=== PATIENT | male | born 1960 | race Caucasian/White ===

== ENCOUNTER 2017-09-14 05:18 | Emergency (ER) | payer SELFPAY ==
[~2017-09-14] VITALS: Ht 182.9 cm; Wt 79.4 kg
--- NOTE | 2017-09-14 05:20 | ER Report ---
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 Patient states she's been on a two-week alcoholic binge. He has a history of distant alcoholism. He states he decompensated over the holidays and has been drinking for 2 weeks. Approximately 15 shots of bourbon per day. Patient's been vomiting for 6 hours. Patient has a history of a Ox[place]-Moody tear. He states he received transfusions. His bleeding was so profuse. I suspect it was secondary to esophageal varices. REVIEW OF SYSTEMS: Respiratory: No cough, no dyspnea. Cardiovascular: No chest pain, no palpitations. Gastrointestinal: As above Musculoskeletal: No back pain. Allergies: Coded Allergies: No Known Drug Allergies (Unverified , 09/14/17) Home Meds Active Scripts Diazepam (VALIUM) 10 Mg Tablet, 1-2 TAB PO 2-3XD Y for alcohol withdrawal symptoms, #15 TAB Prov:KIMBERLY MARIN DO 09/14/17 Promethazine Hcl (PROMETHAZINE HCL) 25 Mg Tablet, 25 MG PO Q4H Y for NAUSEA/ VOMITING, #12 TAB Prov:KIMBERLY MARIN DO 09/14/17 Ondansetron (ZOFRAN ODT) 4 Mg Tab.rapdis, 4 MG PO Q6H Y for NAUSEA/VOMITING, # 10 TAB.LIZY Prov:KIMBERLY MARIN DO 09/14/17 Past Medical/Surgical History Alcoholism, previous upper GI bleed Reviewed Nurses Notes: Yes Old Medical Records Reviewed: Yes Constitutional Vital Sign - Last 24 Hours 09/14/17 09/14/17 09/14/17 09/14/17 05:23 05:27 05:30 05:33 Temp 98.2 Pulse 107 88 Resp 24 B/P (MAP) 161/106 127/94 (105) 145/103 (117) Pulse Ox 91 91 O2 Delivery Room Air 09/14/17 09/14/17 09/14/17 09/14/17 05:48 05:51 06:03 06:08 Pulse ??? 61 68 Resp 18 18 Pulse Ox 86 94 95 O2 Flow Rate 2.0 09/14/17 09/14/17 09/14/17 09/14/17 06:22 06:23 06:28 06:30 Pulse 62 63 Resp 18 16 B/P (MAP) 128/85 (99) 121/82 (95) Pulse Ox 97 95 09/14/17 09/14/17 09/14/17 09/14/17 06:43 06:58 07:00 07:05 Pulse 61 61 96 Resp 16 16 17 B/P (MAP) 102/67 (79) Pulse Ox 95 95 97 09/14/17 09/14/17 07:10 07:15 Pulse 71 86 Resp 16 77 B/P (MAP) 149/98 (115) Pulse Ox 97 97 Intake and Output 09/14/17 09/14/17 09/15/17 15:01 23:01 07:01 Intake Total 1000 ml Balance 1000 ml Physical Exam Vital signs stable, afebrile, pulse ox normal General Appearance: The patient is alert, has no immediate need for airway protection and no current signs of toxicity. Moderate distress, repetitive vomiting, no hemoptysis HEENT: Pupils equal and round no injection. Anicteric sclera, oropharynx with mild erythema Respiratory: Chest is non tender, lungs are clear to auscultation. Cardiac: regular rate and rhythm Gastrointestinal: Abdomen is soft and non tender, no masses, bowel sounds normal. No sputum megaly noted Musculoskeletal: Neck: Neck is supple and non tender. Extremities have full range of motion and are non tender. Skin: No rashes or lesions. DIFFERENTIAL DIAGNOSIS: After history and physical exam differential diagnosis was considered for abdominal pain including but not limited to appendicitis, cholecystitis, gastritis , alcohol poisoning, alcohol withdrawal, food poisoning , gastritis and urinary tract infection. Medical Decision Making Data Points Result Diagram: 09/14/1724 09/14/1724 Laboratory Hematology Test 09/14/17 05:33 09/14/17 06:24 Influenza Type A Antigen Negative (NEGATIVE) Influenza Type B Antigen Negative (NEGATIVE) Red Blood Count 4.61 M/uL (4.00-5.60) Mean Corpuscular Volume 92.3 fL (80.0-96.0) Mean Corpuscular Hemoglobin 30.6 pg (26.0-33.0) Mean Corpuscular Hemoglobin Concent 33.2 g/dL (32.0-36.0) Red Cell Distribution Width 15.8 % (11.5-14.5) Mean Platelet Volume 7.6 fL (7.2-11.1) Neutrophils (%) (Auto) 56.5 % (39.4-72.5) Lymphocytes (%) (Auto) 32.2 % (17.6-49.6) Monocytes (%) (Auto) 9.5 % (4.1-12.4) Eosinophils (%) (Auto) 1.3 % (0.4-6.7) Basophils (%) (Auto) 0.5 % (0.3-1.4) Nucleated RBC Relative Count (auto) 0.0 /100WBC Neutrophils # (Auto) 1.7 K/uL (2.0-7.4) Lymphocytes # (Auto) 0.9 K/uL (1.3-3.6) Monocytes # (Auto) 0.3 K/uL (0.3-1.0) Eosinophils # (Auto) 0.0 K/uL (0.0-0.5) Basophils # (Auto) 0.0 K/uL (0.0-0.1) Nucleated RBC Absolute Count (auto) 0.00 K/uL Sodium Level 143 mmol/L (137-145) Potassium Level 2.9 mmol/L (3.5-5.0) Chloride Level 104 mmol/L (98-107) Carbon Dioxide Level 20 mmol/L (22-30) Blood Urea Nitrogen 8 mg/dl (9-21) Creatinine 0.70 mg/dl (0.66-1.25) Glomerular Filtration Rate Calc > 60.0 Random Glucose 75 mg/dl (75-110) Calcium Level 7.6 mg/dl (8.4-10.2) Total Bilirubin 0.7 mg/dl (0.2-1.3) Aspartate Amino Transf (AST/SGOT) 104 U/L (0-35) Alanine Aminotransferase (ALT/SGPT) 77 U/L (0-56) Alkaline Phosphatase 89 U/L (0-126) Troponin I 0.016 ng/ml Total Protein 6.6 gm/dl (6.3-8.2) Albumin 3.6 g/dl (3.5-5.0) Amylase Level 61 U/L (0-110) Lipase 168 U/L (23-300) Serum Alcohol 226 mg/dl Chemistry Test 09/14/17 05:33 09/14/17 06:24 Influenza Type A Antigen Negative (NEGATIVE) Influenza Type B Antigen Negative (NEGATIVE) White Blood Count 2.9 k/uL (4.5-11.0) Red Blood Count 4.61 M/uL (4.00-5.60) Hemoglobin 14.1 g/dL (14.0-18.0) Hematocrit 42.5 % (42.0-52.0) Mean Corpuscular Volume 92.3 fL (80.0-96.0) Mean Corpuscular Hemoglobin 30.6 pg (26.0-33.0) Mean Corpuscular Hemoglobin Concent 33.2 g/dL (32.0-36.0) Red Cell Distribution Width 15.8 % (11.5-14.5) Platelet Count 85 K/uL (150-450) Mean Platelet Volume 7.6 fL (7.2-11.1) Neutrophils (%) (Auto) 56.5 % (39.4-72.5) Lymphocytes (%) (Auto) 32.2 % (17.6-49.6) Monocytes (%) (Auto) 9.5 % (4.1-12.4) Eosinophils (%) (Auto) 1.3 % (0.4-6.7) Basophils (%) (Auto) 0.5 % (0.3-1.4) Nucleated RBC Relative Count (auto) 0.0 /100WBC Neutrophils # (Auto) 1.7 K/uL (2.0-7.4) Lymphocytes # (Auto) 0.9 K/uL (1.3-3.6) Monocytes # (Auto) 0.3 K/uL (0.3-1.0) Eosinophils # (Auto) 0.0 K/uL (0.0-0.5) Basophils # (Auto) 0.0 K/uL (0.0-0.1) Nucleated RBC Absolute Count (auto) 0.00 K/uL Glomerular Filtration Rate Calc > 60.0 Calcium Level 7.6 mg/dl (8.4-10.2) Total Bilirubin 0.7 mg/dl (0.2-1.3) Aspartate Amino Transf (AST/SGOT) 104 U/L (0-35) Alanine Aminotransferase (ALT/SGPT) 77 U/L (0-56) Alkaline Phosphatase 89 U/L (0-126) Troponin I 0.016 ng/ml Total Protein 6.6 gm/dl (6.3-8.2) Albumin 3.6 g/dl (3.5-5.0) Amylase Level 61 U/L (0-110) Lipase 168 U/L (23-300) Serum Alcohol 226 mg/dl Toxicology Test 09/14/17 06:24 Serum Alcohol 226 mg/dl EKG/Imaging Imaging 12 lead EK 546 Rhythm: normal sinus rhythm [place]: normal QRS: normal ST segments: normal, no evidence of ischemia or dysrhythmia, no old EKGs for comparison ED Course/Re-evaluation Clinical Indication for ER IV: Hydration, IV Access ED Course Patient was admitted to an examination room. H&P was done. The dental diagnoses was considered. Patient admits to heavy alcohol use. He quit almost 36 hours ago. He does have a long history of alcoholism. He is treated with IV fluids, Zofran, Phenergan, Ativan. He feels much better. Diagnostic studies show from a set up ENIAC, leukopenia, mild elevation of LFTs consistent with chronic alcohol use. His potassium is 2.9. He is offered admission to [facility] for medical detox, but declines. He is given potassium 40 mEq by mouth to correct his low potassium. He is discharged home on Phenergan, and Valium. He is advised to abstain from alcohol. Decision to Disposition Date: Sep 14, 2017 Decision to Disposition Time: 06:02 Depart Departure Latest Vital Signs Vital Signs Date Time Temp Pulse Resp B/P (MAP) Pulse Ox O2 Delivery O2 Flow Rate FiO2 09/14/17 07:15 86 77 149/98 (115) 97 09/14/17 05:51 2.0 09/14/17 05:23 98.2 Room Air Impression: Primary Impression: Vomiting Additional Impressions: Alcohol withdrawal Thrombocytopenia Leukopenia Alcoholic hepatitis Condition: Improved Disposition: HOME OR SELF-CARE New Scripts Diazepam (VALIUM) 10 Mg Tablet 1-2 TAB PO 2-3XD Y for alcohol withdrawal symptoms, #15 TAB Prov: KIMBERLY MARIN DO 09/14/17 Promethazine Hcl (PROMETHAZINE HCL) 25 Mg Tablet 25 MG PO Q4H Y for NAUSEA/VOMITING, #12 TAB Prov: KIMBERLY MARIN DO 09/14/17 Ondansetron (ZOFRAN ODT) 4 Mg Tab.rapdis 4 MG PO Q6H Y for NAUSEA/VOMITING, #10 TAB.LIZY Prov: KIMBERLY MARIN DO 09/14/17 Patient Instructions: Alcohol Withdrawal (ED) Additional Instructions: Use medications as provided Follow up with [facility] [phone], address, [facility] [address] for treatment of your alcoholism Problem Qualifiers Primary Impression: Vomiting Vomiting type: unspecified Vomiting Intractability: intractable Nausea presence: with nausea Qualified Codes: R11.2 - Nausea with vomiting, unspecified Additional Impressions: Alcohol withdrawal Complication of substance-induced condition: with unspecified complication Qualified Codes: F10.239 - Alcohol dependence with withdrawal, unspecified Leukopenia Leukopenia type: unspecified Qualified Codes: D72.819 - Decreased white blood cell count, unspecified Alcoholic hepatitis Ascites presence: without ascites Qualified Codes: K70.10 - Alcoholic hepatitis without ascites KIMBERLY MARIN DO Sep 14, 2017 05:20
[2017-09-14] MEDS ORDERED: NS(*) 0.9% 1000 ML BAG 1,000 ML IV ONE (05:27)
[2017-09-14] MEDS ORDERED: ONDANSETRON 4 MG/2 ML VIAL IVP ONE (05:30)
[2017-09-14] MEDS ORDERED: KETOROLAC 30 MG/ML VIAL IVP ONE (05:30)
[2017-09-14] MEDS ORDERED: LORazepam 2 MG/ML VIAL IVP ONE (05:45)
[2017-09-14] MEDS ORDERED: PROMETHAZINE 25 MG/ML 1 ML AMP IVP ONE (05:50)
--- NOTE | 2017-09-14 06:02 | EKG ---
FACILITY: [facility] PATIENT NAME: NORMA CADE : [id number] MR: [id number] V: [id number] EXAM DATE: ORDERING PHYSICIAN: KIMBERLY MARIN TECHNOLOGIST: LINA Cabello Reason : PAIN Blood Pressure : / mmHG Vent. Rate : 073 BPM Atrial Rate : 073 BPM P-R Int : 176 ms QRS Dur : 084 ms QT Int : 396 ms P-R-T Axes : 049 067 058 degrees QTc Int : 436 ms Sinus rhythm Decreased R wave progression anteriorly No acute appearing findings No previous ECGs available Confirmed by BLAIRE GRIFFITHS ([id number]) on 09/14/2017 6:20:11 AM Referred By: MARY Confirmed By:BLAIRE GRIFFITHS
[2017-09-14 06:31] LABS: PLATELET COUNT, AUTOMATED 85 K/uL (150-450)
[2017-09-14] MEDS ORDERED: DIAZ-305 PO (06:39)
[2017-09-14] MEDS ORDERED: ONDA4TAB PO (06:39)
[2017-09-14] MEDS ORDERED: PROM-110 PO (06:39)
[2017-09-14] MEDS ORDERED: POTASSIUM CHL 20 MEQ TABCR PO ONE (06:55)
[2017-09-14 07:15] VITALS: BP 149/98
== END 2017-09-14 07:45 | disposition home or self-care (01) ==
LOC: ER 05:29
DX: F10.239 Alcohol dependence with withdrawal, unspecified (principal); K70.10 Alcoholic hepatitis without ascites; D72.819 Decreased white blood cell count, unspecified; D69.6 Thrombocytopenia, unspecified
CPT/HCPCS: 36415; 80320; 82150; 83690; 84484; 85025; 87502; 93005; 96361; 96374; 96375; 99284; J2060; J2405; J2550; J7030; 82040; 82247; 82310; 82374; 82435; 82565; 82947; 84075; 84132; 84155; 84295; 84450; 84460; 84520

== ENCOUNTER 2017-09-15 05:02 | Emergency (ER) | payer SELFPAY ==
[~2017-09-15] VITALS: Ht 182.9 cm; Wt 77.1 kg
[~2017-09-15 05:02] MED LIST: DIAZ-305 PO; ONDA4TAB PO; PROM-110 PO
--- NOTE | 2017-09-15 05:06 | ER Report ---
History and Physical Time Seen By MD: 05:05 (KIMBERLY HERRERA DO) HPI/ROS CHIEF COMPLAINT: Vomiting, alcohol withdrawal HISTORY OF PRESENT ILLNESS: 57-year-old male presents ambulatory to the ER with vomiting. Patient was seen yesterday morning with alcohol withdrawal and vomiting. Patient was discharged with prescriptions, which he did not fill for Zofran, Phenergan and Valium. Patient admits to having several alcoholic drinks yesterday. REVIEW OF SYSTEMS: Respiratory: No cough, no dyspnea. Cardiovascular: No chest pain, no palpitations. Gastrointestinal: As above Musculoskeletal: No back pain. (KIMBERLY HERRERA DO) Allergies: Coded Allergies: No Known Drug Allergies (Unverified , 09/15/17) Home Meds Active Scripts Diazepam (VALIUM) 10 Mg Tablet, 1-2 TAB PO 2-3XD Y for alcohol withdrawal symptoms, #15 TAB Prov:KIMBERLY HERRERA DO 09/14/17 Promethazine Hcl (PROMETHAZINE HCL) 25 Mg Tablet, 25 MG PO Q4H Y for NAUSEA/ VOMITING, #12 TAB Prov:KIMBERLY HERRERA DO 09/14/17 Ondansetron (ZOFRAN ODT) 4 Mg Tab.rapdis, 4 MG PO Q6H Y for NAUSEA/VOMITING, # 10 TAB.LIZY Prov:KIMBERLY HERRERA DO 09/14/17 Reviewed Nurses Notes: Yes Old Medical Records Reviewed: Yes (KIMBERLY HERRERA DO) Hx Substance Use Disorder: No Hx Alcohol Use: Yes () (KIMBERLY HERRERA DO) Constitutional Vital Sign - Last 24 Hours 09/15/17 09/15/17 09/15/17 09/15/17 05:02 05:07 05:08 05:17 Temp 97.6 Pulse ??? 104 123 Resp 20 21 B/P (MAP) 130/84 130/84 (99) Pulse Ox 90 O2 Delivery Nasal Cannula 09/15/17 09/15/17 09/15/17 09/15/17 05:30 05:32 05:47 06:00 Pulse 84 82 Resp 12 18 B/P (MAP) 139/99 (112) 142/87 (105) Pulse Ox 95 95 09/15/17 09/15/17 09/15/17 09/15/17 06:05 06:20 06:30 06:35 Pulse 82 ??? 80 Resp 19 18 B/P (MAP) 134/81 (98) Pulse Ox 93 92 09/15/17 09/15/17 09/15/17 09/15/17 06:40 06:45 06:50 06:55 Pulse 87 77 76 77 Resp 17 18 16 17 Pulse Ox 92 93 93 93 09/15/17 09/15/17 09/15/17 09/15/17 07:00 07:05 07:20 07:25 Pulse 76 78 97 114 Resp 17 17 19 22 B/P (MAP) 124/77 (93) Pulse Ox 94 93 88 88 09/15/17 09/15/17 09/15/17 09/15/17 07:30 07:35 07:40 07:45 Pulse 90 93 92 88 Resp 18 17 17 16 B/P (MAP) 139/91 (107) Pulse Ox 88 86 86 88 09/15/17 09/15/17 09/15/17 07:50 07:55 08:00 Pulse 79 85 84 Resp 17 18 16 B/P (MAP) 146/84 (104) Pulse Ox 88 91 93 (MARYBETH AMIN MD) Physical Exam General Appearance: The patient is alert, has no immediate need for airway protection and no current signs of toxicity. Vital signs stable, afebrile HEENT Pupils equal and round no injection. Oropharynx with redness, no exudate Respiratory: Chest is non tender, lungs are clear to auscultation. Cardiac: regular rate and rhythm Gastrointestinal: Abdomen is soft and non tender, no masses, bowel sounds normal. Musculoskeletal: Neck: Neck is supple and non tender. Extremities have full range of motion and are non tender. Skin: No rashes or lesions. DIFFERENTIAL DIAGNOSIS: After history and physical exam differential diagnosis was considered for alcohol withdrawal, alcohol poisoning, hepatitis, food poisoning, gastroenteritis, viral syndrome (KIMBERLY HERRERA DO) Medical Decision Making Data Points Result Diagram: 09/15/1751909/15/17 0520 Laboratory Hematology Test 09/15/17 05:20 Red Blood Count 5.04 M/uL (4.00-5.60) Mean Corpuscular Volume 90.9 fL (80.0-96.0) Mean Corpuscular Hemoglobin 30.8 pg (26.0-33.0) Mean Corpuscular Hemoglobin Concent 33.9 g/dL (32.0-36.0) Red Cell Distribution Width 16.2 % (11.5-14.5) Mean Platelet Volume 7.1 fL (7.2-11.1) Neutrophils (%) (Auto) 45.3 % (39.4-72.5) Lymphocytes (%) (Auto) 43.1 % (17.6-49.6) Monocytes (%) (Auto) 9.4 % (4.1-12.4) Eosinophils (%) (Auto) 1.7 % (0.4-6.7) Basophils (%) (Auto) 0.5 % (0.3-1.4) Nucleated RBC Relative Count (auto) 0.1 /100WBC Neutrophils # (Auto) 2.1 K/uL (2.0-7.4) Lymphocytes # (Auto) 2.0 K/uL (1.3-3.6) Monocytes # (Auto) 0.4 K/uL (0.3-1.0) Eosinophils # (Auto) 0.1 K/uL (0.0-0.5) Basophils # (Auto) 0.0 K/uL (0.0-0.1) Nucleated RBC Absolute Count (auto) 0.00 K/uL Sodium Level 143 mmol/L (137-145) Potassium Level 3.4 mmol/L (3.5-5.0) Chloride Level 105 mmol/L (98-107) Carbon Dioxide Level 22 mmol/L (22-30) Blood Urea Nitrogen 9 mg/dl (9-21) Creatinine 0.90 mg/dl (0.66-1.25) Glomerular Filtration Rate Calc > 60.0 Random Glucose 111 mg/dl (75-110) Calcium Level 8.2 mg/dl (8.4-10.2) Total Bilirubin 0.8 mg/dl (0.2-1.3) Aspartate Amino Transf (AST/SGOT) 143 U/L (0-35) Alanine Aminotransferase (ALT/SGPT) 97 U/L (0-56) Alkaline Phosphatase 108 U/L (0-126) Total Protein 7.4 gm/dl (6.3-8.2) Albumin 4.1 g/dl (3.5-5.0) Amylase Level 68 U/L (0-110) Lipase 263 U/L (23-300) Serum Alcohol 220 mg/dl Chemistry Test 09/15/17 05:20 White Blood Count 4.7 k/uL (4.5-11.0) Red Blood Count 5.04 M/uL (4.00-5.60) Hemoglobin 15.6 g/dL (14.0-18.0) Hematocrit 45.8 % (42.0-52.0) Mean Corpuscular Volume 90.9 fL (80.0-96.0) Mean Corpuscular Hemoglobin 30.8 pg (26.0-33.0) Mean Corpuscular Hemoglobin Concent 33.9 g/dL (32.0-36.0) Red Cell Distribution Width 16.2 % (11.5-14.5) Platelet Count 94 K/uL (150-450) Mean Platelet Volume 7.1 fL (7.2-11.1) Neutrophils (%) (Auto) 45.3 % (39.4-72.5) Lymphocytes (%) (Auto) 43.1 % (17.6-49.6) Monocytes (%) (Auto) 9.4 % (4.1-12.4) Eosinophils (%) (Auto) 1.7 % (0.4-6.7) Basophils (%) (Auto) 0.5 % (0.3-1.4) Nucleated RBC Relative Count (auto) 0.1 /100WBC Neutrophils # (Auto) 2.1 K/uL (2.0-7.4) Lymphocytes # (Auto) 2.0 K/uL (1.3-3.6) Monocytes # (Auto) 0.4 K/uL (0.3-1.0) Eosinophils # (Auto) 0.1 K/uL (0.0-0.5) Basophils # (Auto) 0.0 K/uL (0.0-0.1) Nucleated RBC Absolute Count (auto) 0.00 K/uL Glomerular Filtration Rate Calc > 60.0 Calcium Level 8.2 mg/dl (8.4-10.2) Total Bilirubin 0.8 mg/dl (0.2-1.3) Aspartate Amino Transf (AST/SGOT) 143 U/L (0-35) Alanine Aminotransferase (ALT/SGPT) 97 U/L (0-56) Alkaline Phosphatase 108 U/L (0-126) Total Protein 7.4 gm/dl (6.3-8.2) Albumin 4.1 g/dl (3.5-5.0) Amylase Level 68 U/L (0-110) Lipase 263 U/L (23-300) Serum Alcohol 220 mg/dl Toxicology Test 09/15/17 05:20 Serum Alcohol 220 mg/dl (MARYBETH AMIN MD) ED Course/Re-evaluation Clinical Indication for ER IV: Hydration, IV Access Decision to Disposition Date: Sep 15, 2017 Decision to Disposition Time: 05:49 (KIMBERLY HERRERA DO) ED Course I reviewed this patient with Dr. Herrera at sign-out at shift change today. At 0810 the patient was able to ambulate to the bathroom without problems. He is alert and oriented. Oxygen saturations stable. The patient does not want to be admitted. Discharged in stable condition. Has prescriptions from yesterday that he can fill. Decision to Disposition Date: Sep 15, 2017 Decision to Disposition Time: 08:07 (MARYBETH AMIN MD) Depart Departure Latest Vital Signs Vital Signs Date Time Temp Pulse Resp B/P (MAP) Pulse Ox O2 Delivery O2 Flow Rate FiO2 09/15/17 08:00 84 16 146/84 (104) 93 09/15/17 05:07 97.6 Nasal Cannula (MARYBETH AMIN MD) Impression: Primary Impression: Alcohol withdrawal Additional Impression: Alcoholic hepatitis Condition: Improved Disposition: HOME OR SELF-CARE Patient Instructions: Alcohol Withdrawal (ED) Additional Instructions: Kiran prescriptions filled and take them as prescribed Problem Qualifiers Primary Impression: Alcohol withdrawal Complication of substance-induced condition: uncomplicated Qualified Codes: F10.230 - Alcohol dependence with withdrawal, uncomplicated Additional Impression: Alcoholic hepatitis Ascites presence: without ascites Qualified Codes: K70.10 - Alcoholic hepatitis without ascites KIMBERLY HERRERA DO Sep 15, 2017 05:07 MARYBETH AMIN MD Sep 15, 2017 07:01
[2017-09-15] MEDS ORDERED: ONDANSETRON 4 MG/2 ML VIAL IVP ONE (05:15)
[2017-09-15] MEDS ORDERED: LORazepam 2 MG/ML VIAL IVP ONE (05:15)
[2017-09-15] MEDS ORDERED: PROMETHAZINE 25 MG/ML 1 ML AMP IVP ONE (05:25)
[2017-09-15 05:30] LABS: PLATELET COUNT, AUTOMATED 94 K/uL (150-450)
[2017-09-15] MEDS ORDERED: NS(*) 0.9% 1000 ML BAG 1,000 ML IV ONE (05:37)
[2017-09-15 08:00] VITALS: BP 146/84
== END 2017-09-15 08:10 | disposition home or self-care (01) ==
LOC: ER 05:05
DX: F10.239 Alcohol dependence with withdrawal, unspecified (principal); K70.10 Alcoholic hepatitis without ascites
CPT/HCPCS: 80320; 82150; 83690; 85025; 96361; 96374; 96375; 99284; J2060; J2405; J2550; J7030; 82040; 82247; 82310; 82374; 82435; 82565; 82947; 84075; 84132; 84155; 84295; 84450; 84460; 84520

== ENCOUNTER 2017-09-17 01:40 | Emergency (ER) | payer SELFPAY ==
[~2017-09-17] VITALS: Ht 182.9 cm; Wt 77.1 kg
[2017-09-17] MEDS ORDERED: THIAMINE HCL(*) 200 MG/2 ML IN 100 MG, FOLIC ACID(*) 50 MG/10 ML INJ 1 MG, MULTIVITAMIN... IV ONE (01:48)
[2017-09-17] MEDS ORDERED: LORazepam 2 MG/ML VIAL IVP ONE (01:50)
[2017-09-17] MEDS ORDERED: ONDANSETRON 4 MG/2 ML VIAL IVP ONE (01:50)
--- NOTE | 2017-09-17 01:55 | ER Report ---
History and Physical Time Seen By MD: 01:43 Hx. of Stated Complaint: PT RETURNS FOR THIRD TIME INTOXICATED. PT EXPRESSES INTREST IN S FOR DETOX. HPI/ROS CHIEF COMPLAINT: n/v intoxication HISTORY OF PRESENT ILLNESS: Pt has long hx of binge drinking. PT has been on a binge since 08/30/2017 per patient. Pt has been seen in ED for intoxication and symptoms 09/14 and 09/15. Pt was sent home with script for valium and phenergan but did not fill either. Pt states he just continued to drink so did not feel he needed the medication. Tonight pt with vomiting and abd discomfort. Pt states he feels more confused and has some blurred vision. Came here to be checked. Pt had 15 shots of burbon tonight. REVIEW OF SYSTEMS: Constitutional: No fever, no chills. Eyes: No discharge. + intermittent blurred vision ENT: No sore throat. Cardiovascular: No chest pain, no palpitations. Respiratory: No cough, no shortness of breath. Gastrointestinal: + abdominal pain, +nausea, + vomiting. Genitourinary: No hematuria. Musculoskeletal: No back pain. Skin: No rashes. Neurological: No headache. Allergies: Coded Allergies: No Known Drug Allergies (Unverified , 09/17/17) Home Meds Active Scripts Diazepam (VALIUM) 10 Mg Tablet, 1-2 TAB PO 2-3XD Y for alcohol withdrawal symptoms, #15 TAB Prov:KIMBERLY MARIN DO 09/14/17 Promethazine Hcl (PROMETHAZINE HCL) 25 Mg Tablet, 25 MG PO Q4H Y for NAUSEA/ VOMITING, #12 TAB Prov:KIMBERLY MARIN DO 09/14/17 Ondansetron (ZOFRAN ODT) 4 Mg Tab.rapdis, 4 MG PO Q6H Y for NAUSEA/VOMITING, # 10 TAB.LIZY Prov:KIMBERLY MARIN DO 09/14/17 Past Medical/Surgical History Pmhx: alcoholism Pshx: denied Reviewed Nurses Notes: Yes Old Medical Records Reviewed: Yes Hx Substance Use Disorder: No Hx Alcohol Use: Yes (15OZ DAY OF BURBON) Constitutional Vital Sign - Last 24 Hours 09/17/17 09/17/17 09/17/17 09/17/17 01:46 01:47 01:55 02:00 Temp 98.0 Pulse 97 105 Resp 12 17 B/P (MAP) 149/92 149/92 (111) 155/95 (115) Pulse Ox 87 92 O2 Delivery Room Air 09/17/17 09/17/17 09/17/17 09/17/17 02:10 02:15 02:20 02:40 Pulse 93 81 Resp 8 12 B/P (MAP) 153/95 (114) 150/104 (119) 151/94 (113) Pulse Ox 94 95 09/17/17 09/17/17 09/17/17 09/17/17 02:50 03:00 03:05 03:20 Pulse 65 68 71 Resp 15 14 12 B/P (MAP) 148/87 (107) 141/92 (108) Pulse Ox 94 94 95 Physical Exam General Appearance: The patient is alert, has no immediate need for airway protection and no signs of toxicity. Eyes: Pupils equal and round no pallor or injection, EOMI, injected scleria ENT: no pharyngeal erythema or exudates, Mucous membranes are moist Respiratory: There are no retractions, lungs are clear to auscultation. Cardiovascular: Regular rate and rhythm. pulses are equal and symmetrical Gastrointestinal: Abdomen is soft and non tender, no masses, bowel sounds normal, no guarding, no rigidity or rebound Neurological: Cranial nerves II-XII grossly intact, no sensory or motor loss Skin: Warm and dry, no rashes. Musculoskeletal: Neck is supple non tender, no vertebral tenderness Extremities are nontender, non swollen and have full range of motion. DIFFERENTIAL DIAGNOSIS: After history and physical exam differential diagnosis was considered for electrolyte abnl, dehydration, depression, alcoholism Medical Decision Making Data Points Result Diagram: 09/17/17 0200 09/17/17 0200 Laboratory Hematology Test 09/17/17 02:00 09/17/17 02:06 Red Blood Count 4.56 M/uL (4.00-5.60) Mean Corpuscular Volume 90.9 fL (80.0-96.0) Mean Corpuscular Hemoglobin 30.8 pg (26.0-33.0) Mean Corpuscular Hemoglobin Concent 33.9 g/dL (32.0-36.0) Red Cell Distribution Width 16.4 % (11.5-14.5) Mean Platelet Volume 7.1 fL (7.2-11.1) Neutrophils (%) (Auto) 45.6 % (39.4-72.5) Lymphocytes (%) (Auto) 41.7 % (17.6-49.6) Monocytes (%) (Auto) 9.9 % (4.1-12.4) Eosinophils (%) (Auto) 2.3 % (0.4-6.7) Basophils (%) (Auto) 0.5 % (0.3-1.4) Nucleated RBC Relative Count (auto) 0.0 /100WBC Neutrophils # (Auto) 2.0 K/uL (2.0-7.4) Lymphocytes # (Auto) 1.8 K/uL (1.3-3.6) Monocytes # (Auto) 0.4 K/uL (0.3-1.0) Eosinophils # (Auto) 0.1 K/uL (0.0-0.5) Basophils # (Auto) 0.0 K/uL (0.0-0.1) Nucleated RBC Absolute Count (auto) 0.00 K/uL Sodium Level 142 mmol/L (137-145) Potassium Level 3.2 mmol/L (3.5-5.0) Chloride Level 105 mmol/L (98-107) Carbon Dioxide Level 23 mmol/L (22-30) Blood Urea Nitrogen 8 mg/dl (9-21) Creatinine 0.80 mg/dl (0.66-1.25) Glomerular Filtration Rate Calc > 60.0 Random Glucose 113 mg/dl (75-110) Calcium Level 8.2 mg/dl (8.4-10.2) Magnesium Level 1.6 mg/dl (1.7-2.2) Total Bilirubin 0.4 mg/dl (0.2-1.3) Aspartate Amino Transf (AST/SGOT) 111 U/L (0-35) Alanine Aminotransferase (ALT/SGPT) 89 U/L (0-56) Alkaline Phosphatase 90 U/L (0-126) Total Protein 6.7 gm/dl (6.3-8.2) Albumin 3.6 g/dl (3.5-5.0) Salicylates Level < 10 mg/L Salicylate Last Dose Date unknown Acetaminophen Level < 10 ug/ml Serum Alcohol 202 mg/dl Urine Color Yellow Urine Clarity Clear Urine pH 5.0 pH (4.8-9.5) Urine Specific [place] 1.012 Urine Protein Negative mg/dL (NEGATIVE) Urine Glucose (UA) Negative mg/dL (NEGATIVE) Urine Ketones Negative mg/dL (NEGATIVE) Urine Blood Small (NEGATIVE) Urine Nitrite Negative (NEGATIVE) Urine Bilirubin Negative (NEGATIVE) Urine Urobilinogen Negative mg/dL (0.2-1.9) Urine Leukocyte Esterase Negative (NEGATIVE) Urine RBC 1 /HPF (0-2/HPF) Urine WBC 1 /HPF (0-5/HPF) Urine Squamous Epithelial Cells None /LPF (</=FEW) Urine Bacteria Negative /HPF (NONE-FEW) Urine Hyaline Casts Few /LPF (NONE-FEW) Urine Mucus Few /HPF (NONE-FEW) Urine Opiates Screen Negative Urine Barbiturates Screen Negative Ur Tricyclic Antidepressants Screen Negative Urine Phencyclidine Screen Negative Urine Amphetamines Screen Negative Urine Benzodiazepines Screen Positive Urine Cocaine Screen Negative Urine Cannabinoids Screen Negative Chemistry Test 09/17/17 02:00 09/17/17 02:06 White Blood Count 4.4 k/uL (4.5-11.0) Red Blood Count 4.56 M/uL (4.00-5.60) Hemoglobin 14.1 g/dL (14.0-18.0) Hematocrit 41.5 % (42.0-52.0) Mean Corpuscular Volume 90.9 fL (80.0-96.0) Mean Corpuscular Hemoglobin 30.8 pg (26.0-33.0) Mean Corpuscular Hemoglobin Concent 33.9 g/dL (32.0-36.0) Red Cell Distribution Width 16.4 % (11.5-14.5) Platelet Count 80 K/uL (150-450) Mean Platelet Volume 7.1 fL (7.2-11.1) Neutrophils (%) (Auto) 45.6 % (39.4-72.5) Lymphocytes (%) (Auto) 41.7 % (17.6-49.6) Monocytes (%) (Auto) 9.9 % (4.1-12.4) Eosinophils (%) (Auto) 2.3 % (0.4-6.7) Basophils (%) (Auto) 0.5 % (0.3-1.4) Nucleated RBC Relative Count (auto) 0.0 /100WBC Neutrophils # (Auto) 2.0 K/uL (2.0-7.4) Lymphocytes # (Auto) 1.8 K/uL (1.3-3.6) Monocytes # (Auto) 0.4 K/uL (0.3-1.0) Eosinophils # (Auto) 0.1 K/uL (0.0-0.5) Basophils # (Auto) 0.0 K/uL (0.0-0.1) Nucleated RBC Absolute Count (auto) 0.00 K/uL Glomerular Filtration Rate Calc > 60.0 Calcium Level 8.2 mg/dl (8.4-10.2) Magnesium Level 1.6 mg/dl (1.7-2.2) Total Bilirubin 0.4 mg/dl (0.2-1.3) Aspartate Amino Transf (AST/SGOT) 111 U/L (0-35) Alanine Aminotransferase (ALT/SGPT) 89 U/L (0-56) Alkaline Phosphatase 90 U/L (0-126) Total Protein 6.7 gm/dl (6.3-8.2) Albumin 3.6 g/dl (3.5-5.0) Salicylates Level < 10 mg/L Salicylate Last Dose Date unknown Acetaminophen Level < 10 ug/ml Serum Alcohol 202 mg/dl Urine Color Yellow Urine Clarity Clear Urine pH 5.0 pH (4.8-9.5) Urine Specific [place] 1.012 Urine Protein Negative mg/dL (NEGATIVE) Urine Glucose (UA) Negative mg/dL (NEGATIVE) Urine Ketones Negative mg/dL (NEGATIVE) Urine Blood Small (NEGATIVE) Urine Nitrite Negative (NEGATIVE) Urine Bilirubin Negative (NEGATIVE) Urine Urobilinogen Negative mg/dL (0.2-1.9) Urine Leukocyte Esterase Negative (NEGATIVE) Urine RBC 1 /HPF (0-2/HPF) Urine WBC 1 /HPF (0-5/HPF) Urine Squamous Epithelial Cells None /LPF (</=FEW) Urine Bacteria Negative /HPF (NONE-FEW) Urine Hyaline Casts Few /LPF (NONE-FEW) Urine Mucus Few /HPF (NONE-FEW) Urine Opiates Screen Negative Urine Barbiturates Screen Negative Ur Tricyclic Antidepressants Screen Negative Urine Phencyclidine Screen Negative Urine Amphetamines Screen Negative Urine Benzodiazepines Screen Positive Urine Cocaine Screen Negative Urine Cannabinoids Screen Negative Toxicology Test 09/17/17 02:00 09/17/17 02:06 Salicylates Level < 10 mg/L Salicylate Last Dose Date unknown Acetaminophen Level < 10 ug/ml Serum Alcohol 202 mg/dl Urine Opiates Screen Negative Urine Barbiturates Screen Negative Ur Tricyclic Antidepressants Screen Negative Urine Phencyclidine Screen Negative Urine Amphetamines Screen Negative Urine Benzodiazepines Screen Positive Urine Cocaine Screen Negative Urine Cannabinoids Screen Negative Urinalysis Test 09/17/17 02:06 Urine Color Yellow Urine Clarity Clear Urine pH 5.0 pH (4.8-9.5) Urine Specific [place] 1.012 Urine Protein Negative mg/dL (NEGATIVE) Urine Glucose (UA) Negative mg/dL (NEGATIVE) Urine Ketones Negative mg/dL (NEGATIVE) Urine Blood Small (NEGATIVE) Urine Nitrite Negative (NEGATIVE) Urine Bilirubin Negative (NEGATIVE) Urine Urobilinogen Negative mg/dL (0.2-1.9) Urine Leukocyte Esterase Negative (NEGATIVE) Urine RBC 1 /HPF (0-2/HPF) Urine WBC 1 /HPF (0-5/HPF) Urine Squamous Epithelial Cells None /LPF (</=FEW) Urine Bacteria Negative /HPF (NONE-FEW) Urine Hyaline Casts Few /LPF (NONE-FEW) Urine Mucus Few /HPF (NONE-FEW) ED Course/Re-evaluation Clinical Indication for ER IV: Hydration, IV Access ED Course 09/17/2017 2:26:44 am PTs magnesium and potassium are low. Pt is currently getting magnesium in his banana bag. Will give a dose of potassium. 09/17/2017 3:24:58 am PT is awake from his nap. Pt states he feels much better. Banana bag still with 200ml to complete. No beds available in currently. Offered to check to see bed availability in [place] however pt no longer looking for detox/rehab. Pt states that he is always depressed on holidays and he states that he is now going to start this year by looking for a new job "i dont drink when I am focused at work". Will wait for fluids to complete. Decision to Disposition Date: Sep 17, 2017 Decision to Disposition Time: 04:10 Depart Departure Latest Vital Signs Vital Signs Date Time Temp Pulse Resp B/P (MAP) Pulse Ox O2 Delivery O2 Flow Rate FiO2 09/17/17 03:20 71 12 141/92 (108) 95 09/17/17 01:46 98.0 Room Air Impression: Primary Impression: ALCOHOL DEPENDENCE WITH INTOXICATION, UNSPECIFIED Additional Impressions: HYPOMAGNESEMIA HYPOKALEMIA Referrals: Alcoholics Anonymous [facility] Patient Instructions: Abuse of Alcohol (GEN) Additional Instructions: Recommend you stop drinking. Scripts for phenergan and valium were prescribed for you on your prior visits. Recommend obtaining the medications to help with any nausea, anxiety or withdrawl symptoms you may feel. [place] does have support groups such as AA which can be helpful. Return as needed. Problem Qualifiers ARLYN PAZ DO Sep 17, 2017 01:55
[2017-09-17 02:10] LABS: PLATELET COUNT, AUTOMATED 80 K/uL (150-450)
[2017-09-17] MEDS ORDERED: POTASSIUM CHL 20 MEQ TABCR PO ONE (02:30)
[2017-09-17 04:13] VITALS: BP 156/103
== END 2017-09-17 04:18 | disposition home or self-care (01) ==
LOC: ER 01:43
DX: F10.229 Alcohol dependence with intoxication, unspecified (principal); E83.42 Hypomagnesemia; E87.6 Hypokalemia; R11.2 Nausea with vomiting, unspecified; R10.9 Unspecified abdominal pain
CPT/HCPCS: 80305; 80320; 80329; 81001; 83735; 84443; 85025; 96365; 96366; 96375; 99283; J2060; J2405; J3411; J3475; J7030; 82040; 82247; 82310; 82374; 82435; 82565; 82947; 84075; 84132; 84155; 84295; 84450; 84460; 84520

== ENCOUNTER 2017-09-19 23:36 | Inpatient (IN) | payer SELFPAY ==
[~2017-09-19] VITALS: Ht 182.9 cm; Wt 75.5 kg
--- NOTE | 2017-09-19 23:47 | ER Report ---
History and Physical Time Seen By MD: 23:43 HPI/ROS CHIEF COMPLAINT: Vomiting blood HISTORY OF PRESENT ILLNESS: 57-year-old male alcoholic who presents ambulatory to the ER complaining of vomiting dark blood and proximal 10 ounces at home earlier. Patient has a history of a previous upper GI bleed with transfusions in the distant past. Patient states he does not want endoscopy. Patient denies black stools. Patient states she's been on a two-week alcoholic binge since . He's been drinking approximately 15 ounces per day. She's been seen in the ER twice and offered admission [facility]. He's declined them both occasions. Patient states his last alcohol was 10 hours ago. REVIEW OF SYSTEMS: Respiratory: No cough, no dyspnea. Cardiovascular: No chest pain, no palpitations. Gastrointestinal: As above Musculoskeletal: No back pain. Allergies: Coded Allergies: No Known Drug Allergies (Unverified , 09/19/17) Home Meds Discontinued Scripts Diazepam (VALIUM) 10 Mg Tablet, 1-2 TAB PO 2-3XD Y for alcohol withdrawal symptoms, #15 TAB Prov:KIMBERLY MARIN DO 09/14/17 Promethazine Hcl (PROMETHAZINE HCL) 25 Mg Tablet, 25 MG PO Q4H Y for NAUSEA/ VOMITING, #12 TAB Prov:KIMBERLY MARIN DO 09/14/17 Ondansetron (ZOFRAN ODT) 4 Mg Tab.rapdis, 4 MG PO Q6H Y for NAUSEA/VOMITING, # 10 TAB.LIZY Prov:KIMBERLY MARIN DO 09/14/17 Reviewed Nurses Notes: Yes Old Medical Records Reviewed: Yes Hx Substance Use Disorder: No Hx Alcohol Use: Yes () Constitutional Vital Sign - Last 24 Hours 09/19/17 09/19/17 09/19/17 09/19/17 23:39 23:41 23:41 23:42 Temp 97.0 Pulse 94 105 Resp 20 B/P (MAP) 147/106 (120) 147/106 109/89 (96) Pulse Ox 90 86 O2 Delivery Room Air 09/19/17 09/19/17 09/19/17 09/19/17 23:45 23:46 23:51 23:56 Pulse 85 86 83 Resp 10 8 6 B/P (MAP) 125/88 (100) Pulse Ox 94 95 94 09/20/17 09/20/17 09/20/17 09/20/17 00:00 00:01 00:06 00:11 Pulse 84 89 70 Resp 9 10 6 B/P (MAP) 133/89 (104) Pulse Ox 94 93 96 09/20/17 09/20/17 09/20/17 09/20/17 00:15 00:16 00:21 00:26 Pulse 75 107 76 Resp 6 11 6 B/P (MAP) 110/75 (87) Pulse Ox 96 98 96 09/20/17 09/20/17 09/20/17 09/20/17 00:30 00:31 00:36 00:45 Pulse 91 68 Resp 12 9 B/P (MAP) 123/85 (98) 131/86 (101) Pulse Ox 94 97 09/20/17 09/20/17 09/20/17 09/20/17 00:46 00:51 00:56 01:00 Pulse 75 73 119 Resp 15 8 B/P (MAP) 134/84 (101) Pulse Ox 95 95 09/20/17 09/20/17 09/20/17 09/20/17 01:01 01:06 01:15 01:16 Pulse ??? 95 99 Resp 6 7 B/P (MAP) 125/94 (104) Pulse Ox 95 98 94 09/20/17 09/20/17 09/20/17 09/20/17 01:21 01:26 01:30 01:31 Pulse 101 110 ??? Resp 10 19 B/P (MAP) 123/85 (98) Pulse Ox 96 Physical Exam General Appearance: The patient is alert, has no immediate need for airway protection and no current signs of toxicity. Patient has emesis bag with approximately 6 ounces of coffee-ground emesis in, skin warm, dry, pink HEENT: Pupils equal and round no injection. Respiratory: Chest is non tender, lungs are clear to auscultation. Cardiac: regular rate and rhythm Gastrointestinal: Abdomen is soft and non tender, no masses, bowel sounds normal. Musculoskeletal: Neck: Neck is supple and non tender. Extremities have full range of motion and are non tender. Skin: No rashes or lesions. DIFFERENTIAL DIAGNOSIS: After history and physical exam differential diagnosis was considered for upper GI bleeding including but not limited to ulcer disease , gastritis, Oxana-Moody tear, and esophageal varices. Medical Decision Making Data Points Result Diagram: 09/20/17 0517 09/20/17 0517 Laboratory Hematology Test 09/19/17 00:18 09/20/17 00:00 Prothrombin Time 13.5 seconds (12.0-14.4) Prothromb Time International Ratio 1.03 Activated Partial Thromboplast Time 26 seconds (23-35) Amylase Level 35 U/L (0-110) Lipase 235 U/L (23-300) Serum Alcohol 329 mg/dl Gastric Fluid pH 2 pH Gastric Fluid Occult Blood Positive (NEGATIVE) Chemistry Test 09/19/17 00:18 09/20/17 00:00 Prothrombin Time 13.5 seconds (12.0-14.4) Prothromb Time International Ratio 1.03 Activated Partial Thromboplast Time 26 seconds (23-35) Amylase Level 35 U/L (0-110) Lipase 235 U/L (23-300) Serum Alcohol 329 mg/dl Gastric Fluid pH 2 pH Gastric Fluid Occult Blood Positive (NEGATIVE) Coagulation Test 09/19/17 00:18 Prothrombin Time 13.5 seconds Prothromb Time International Ratio 1.03 Activated Partial Thromboplast Time 26 seconds Toxicology Test 09/19/17 00:18 Serum Alcohol 329 mg/dl EKG/Imaging EKG Interpretation 12 lead EK Rhythm: Atrial fibrillation rate 104 [place]: normal QRS: normal ST segments: normal, no evidence of ischemia, diffuse T-wave flattening, comparison to previous EKG dated 09/14/17, no significant change ED Course/Re-evaluation Clinical Indication for ER IV: Hydration, IV Access ED Course Patient was admitted to an examination room. H&P was done. The differential diagnoses was considered. On clinical examination. Patient admits he's been vomiting dark blood. He's noted some clots. Patient likely has a history of varices from his chronic alcoholism. Patient's been on a binge for the last 2 weeks. Approximately 15 ounces of bourbon per day. Patient's been seen in the ER on 3 other occasions. Tonight, his H&H is down slightly. His vital signs are stable. He continues to retch here in the emergency department. He goes into atrial fibrillation. His coags are normal. He has a history of mild thrombocytopenia. Patient's blood alcohol returns at 329. His case is discussed with Dr. Wray as noted below. The patient be admitted to ICU to be closely monitored. 09/20/2017 12:59:28 am case discussed with Dr. Bala Rutledge hospitalist on- call, who will come evaluate the patient and consider admission. Decision to Disposition Date: Sep 20, 2017 Decision to Disposition Time: 00:59 Depart Departure Latest Vital Signs Vital Signs Date Time Temp Pulse Resp B/P (MAP) Pulse Ox O2 Delivery O2 Flow Rate FiO2 09/20/17 01:31 ??? 19 09/20/17 01:30 123/85 (98) 09/20/17 01:21 96 09/19/17 23:41 97.0 Room Air Impression: Primary Impression: Upper GI bleed Additional Impressions: Thrombocytopenia Leukopenia New onset a-fib Condition: Improved Disposition: Admitted from ER Problem Qualifiers Additional Impressions: Leukopenia Leukopenia type: unspecified Qualified Codes: D72.819 - Decreased white blood cell count, unspecified KIMBERLY MARIN DO Sep 19, 2017 23:47
[2017-09-19] MEDS ORDERED: NS(*) 0.9% 1000 ML BAG 1,000 ML IV ONE (23:51)
[2017-09-19] MEDS ORDERED: PANTOPRAZOLE SOD 40 MG IV VIAL IVP ONE (23:55)
[2017-09-19] MEDS ORDERED: ONDANSETRON 4 MG/2 ML VIAL IVP ONE (23:55)
[2017-09-20] VITALS (39 sets, daily range): BP systolic 84–168; BP diastolic 53–106; Ht 182.9 cm; Wt 75.5 kg
[2017-09-20 00:33] LABS: PLATELET COUNT, AUTOMATED 96 K/uL (150-450)
[2017-09-20 00:45] LABS: INR 1.03
[2017-09-20] MEDS ORDERED: PROMETHAZINE 25 MG/ML 1 ML AMP IVP ONE (01:00)
[2017-09-20] MEDS ORDERED: ONDANSETRON 4 MG/2 ML VIAL IVP PRN (01:40)
[2017-09-20] MEDS ORDERED: LORazepam 1 MG TAB PO PRN (01:40)
[2017-09-20] MEDS ORDERED: PANTOPRAZOLE SOD 40 MG IV VIAL IVP ONE (01:40)
[2017-09-20] MEDS: PANTOPRAZOLE SOD(*)40 MG VIAL 80 MG in NS(*) 0.9% 100 ML BAG 100 ML IV SCH ×3 (01:40→21:40)
[2017-09-20] MEDS ORDERED: DILTIAZEM HCL* 100 MG ADDVIAL 100 MG in NS(*) 0.9% 100 ML ADDVANT BAG 100 ML IV SCH (01:40)
[2017-09-20] MEDS ORDERED: THIAMINE HCL(*) 200 MG/2 ML IN 100 MG, FOLIC ACID(*) 50 MG/10 ML INJ 1 MG, MULTIVITAMIN... IV ONE (01:40)
[2017-09-20] MEDS ORDERED: INFLUENZA VIRUS VAC 0.5 ML SYR IM ONLY ONE (01:40)
[2017-09-20] MEDS ORDERED: MAGNESIUM SUL* 2 GM/50 ML IVPB 50 ML IVPB ONE (02:00)
--- NOTE | 2017-09-20 02:14 | History & Physical ---
History of Present Illness History of Present Illness 57yo male with a h/o alcohol abuse who came to the ER for coffee ground emesis. He has been on an alcohol binge for almost 3 weeks. He has been to the ER for vomiting and intoxication 3 days ago, 5 days ago and 6 days ago. He reports drinking about 16 ounces of whiskey a day during the binge. His last drink was about 9pm. He reports having a Oxana-Moody tear a year ago that required hospitalization in [place], [place]. He refused to have an EGD done and the bleeding stopped. He has never had an EGD. He denies any hospitalizations for alcohol withdrawal. He denies any NSAID use and doesn't take any prescription medications. He denies chest pain, sob, melena, blood in stools. He has self diagnosed atrial fibrillation because he has noticed palpitations. In the ER, he was given a Protonix IV, Zofran, and NS. He had an episode of coffee ground emesis in the ER. He went into atrial fibrillation in the ER. History Problems: (1) History of upper gastrointestinal bleeding (2) Alcohol abuse Home Meds Discontinued Scripts Diazepam (VALIUM) 10 Mg Tablet, 1-2 TAB PO 2-3XD Y for alcohol withdrawal symptoms, #15 TAB Prov:KIMBERLY MARIN DO 09/14/17 Promethazine Hcl (PROMETHAZINE HCL) 25 Mg Tablet, 25 MG PO Q4H Y for NAUSEA/ VOMITING, #12 TAB Prov:KIMBERLY MARIN DO 09/14/17 Ondansetron (ZOFRAN ODT) 4 Mg Tab.rapdis, 4 MG PO Q6H Y for NAUSEA/VOMITING, # 10 TAB.LIZY Prov:KIMBERLY MARIN DO 09/14/17 Allergies: Coded Allergies: No Known Drug Allergies (Unverified , 09/19/17) Other Social/Family Hx He is a auto body repair technician. He doesn't smoke. Hx Alcohol Use: Yes (16 oz of [place] a day. ) Review of Systems All Systems Reviewed/Normal: Yes, Except as Noted Exam Vital Signs Vital Signs Date Time Temp Pulse Resp B/P (MAP) Pulse Ox O2 Delivery O2 Flow Rate FiO2 09/19/17 23:41 97.0 105 20 147/106 86 Room Air General Appearance: Awake, No Acute Distress Neuro: Other (Appears intoxicated. Slurring words. No focal deficits. Answers questions appropriately.) ENT: Moist Mucous Membranes (Dark liquid on tongue) Cardiovascular: Other (Tachy, irregular) Respiratory: Clear to Auscultation GI: Abd Soft and Non-Tender (No stigmata of liver disease) Extremities: No Edema Integumentary: No Jaundice, No Cyanosis Medical Decision Making Data Points Result Diagram: 09/19/171709/19/1717 Item Value Date Time Magnesium Level 1.6 mg/dl L 09/17/17199 Total Bilirubin 0.5 mg/dl 09/19/1717 Aspartate Amino Transf (AST/SGOT) 139 U/L H 09/19/1717 Alanine Aminotransferase (ALT/SGPT) 96 U/L H 09/19/1717 Alkaline Phosphatase 79 U/L 09/19/1717 Thyroid Stimulating Hormone (TSH) 2.29 uIU/ml 09/17/17199 Neutrophils (%) (Auto) 57.2 % 09/19/1717 Lymphocytes (%) (Auto) 30.6 % 09/19/1717 EKG / Imaging EKG Interpretation Atrial fibrillation with RVR. No obvious ST depression. I didn't have access to a previous ECG, but trying to get one. Assessment and Plan Problems: (1) Upper GI bleed Status: Acute Assessment & Plan: He presented after an episode of coffee ground emesis and then had another in the ER. It is likely secondary to vomiting, because he has been binge drinking and has been to the ER 3 times in the last week for vomiting. Initially, his bp/p/Hg were stable. However, then he went into atrial fibrillation, so his heart rate increased, but bp remained stable. He denies any abdominal pain and has a benign exam. He has been typed and crossed for 2 units. INR is wnl and plt count is mildly low at 96k. He will admitted to the ICU. Protonix will be loaded and then a drip started. He is to be NPO. General Surgery hasn't been consulted, but is aware that the patient has been admitted. The patient doesn't want an EGD unless it is an absolute emergency. Repeat Hg in a couple of hours. (2) New onset a-fib Status: Acute Assessment & Plan: BP stable. No evidence of ischemia on ECG. Will start a diltiazem drip and titrate to rate. Will order an echo. TSH wnl on previous ER visit. (3) Alcohol withdrawal Status: Acute Assessment & Plan: He denies a h/o of DT's or seizures. Will implement seizure precautions, follow with [facility] and use Ativan IV to cover. (4) Thrombocytopenia Status: Chronic Assessment & Plan: Secondary to alcohol abuse. (5) Alcoholic hepatitis Status: Acute Assessment & Plan: Will follow CMP. Venous Thromboembolism Antithrombotics Is Pt On Any Antithrombotics?: No Prophylaxis Tx Contraindicated Pharmacological Contraindicati: Active Bleeding Exam Sepsis Risk: No Definite Risk Problem Qualifiers (1) Alcoholic hepatitis: Ascites presence: without ascites Qualified Codes: K70.10 - Alcoholic hepatitis without ascites DOMINGO OSBORNE MD Sep 20, 2017 02:14
[2017-09-20] MEDS ORDERED: THIAMINE HCL 200 MG/2 ML INJ ONE ×2 (02:43→20:15)
[2017-09-20] MEDS ORDERED: MULTIVITAMINS 10 ML VIAL IV ONE ×2 (02:45→20:16)
--- NOTE | 2017-09-20 02:52 | EKG ---
FACILITY: [facility] PATIENT NAME: NORMA CADE : [id number] MR: [id number] V: [id number] EXAM DATE: ORDERING PHYSICIAN: KIMBERLY MARIN TECHNOLOGIST: JC Test Reason : A FIB Blood Pressure : / mmHG Vent. Rate : 104 BPM Atrial Rate : 045 BPM P-R Int : 000 ms QRS Dur : 082 ms QT Int : 360 ms P-R-T Axes : 000 062 041 degrees QTc Int : 473 ms Atrial fibrillation with rapid ventricular response Abnormal ECG When compared with ECG of 14-SEP-2017 05:44, Now in atrial fibrillation Now with diffuse T flattening Confirmed by DOMINGO OSBORNE ([id number]) on 09/20/2017 5:38:01 AM Referred By: Confirmed By:DOMINGO OSBORNE
[2017-09-20] MEDS: NS(*) 0.9% 1000 ML BAG 1,000 ML IV PRN ×2 (03:07→11:39)
[2017-09-20 05:33] LABS: PLATELET COUNT, AUTOMATED 87 K/uL (150-450)
[2017-09-20] MEDS ORDERED: KCL (*) 20 MEQ/100 ML PREMIX 100 ML IV ONE (07:55)
[2017-09-20] MEDS: LORazepam 2 MG/ML VIAL IVP PRN ×2 (08:18→18:19)
[2017-09-20] MEDS: PROMETHAZINE 25 MG/ML 1 ML AMP IVP PRN ×2 (08:19→14:10)
[2017-09-20] MEDS ORDERED: LORazepam 2 MG/ML VIAL IVP ONE (08:20)
[2017-09-20] MEDS ORDERED: MULTIVITAMINS IV ONE (20:10)
[2017-09-20] MEDS ORDERED: ACETAMINOPHEN 325 MG TAB PO PRN (20:10)
[2017-09-20] MEDS ORDERED: THIAMINE HCL IV ONE (20:10)
[2017-09-20] MEDS ORDERED: [UNRECOGNIZED DRUG - OTHER] IV ONE (20:10)
[2017-09-20] MEDS ORDERED: MAGNESIUM SUL 50% 1GM/2ML VIAL ONE (20:15)
[2017-09-21] VITALS (10 sets, daily range): BP systolic 127–165; BP diastolic 84–113
[2017-09-21] MEDS: NS(*) 0.9% 1000 ML BAG 1,000 ML IV PRN (05:25)
[2017-09-21 05:29] LABS: PLATELET COUNT, AUTOMATED 89 K/uL (150-450)
[2017-09-21] MEDS: LORazepam 2 MG/ML VIAL IVP PRN (05:38)
[2017-09-21] MEDS ORDERED: PANTOPRAZOLE SOD 40 MG TABEC PO SCH (09:00)
--- NOTE | 2017-09-21 12:54 | Hospitalist Depart ---
Discharge Summary Reason for Hosp/Final Diag: (1) Upper GI bleed Status: Acute Hospital Course & Plan: He presented after an episode of coffee ground emesis and then had another episode in the emergency room. His Hgb has been stable since admission. He reports that he has been on an alcohol binge for the last 2 weeks and that he does usually get bloody emesis from excessive vomiting. He has refused upper endoscopy. We did place him on prophylactic treatment with Protonix. His vomiting has resolved. (2) New onset a-fib Status: Acute Hospital Course & Plan: He did have atrial fibrillation on admission and was placed on a diltiazem infusion. He has converted to sinus rhythm and the diltiazem has been discontinued. (3) Alcohol withdrawal Status: Acute Hospital Course & Plan: He was placed on CIWA protocol, but did not exhibit any withdrawal symptoms. We offered placement on [facility] for counseling, but he refused. (4) Thrombocytopenia Status: Chronic Hospital Course & Plan: Secondary to alcohol abuse. (5) Alcoholic hepatitis Status: Acute Hospital Course & Plan: His liver enzymes were elevated, but he has no symptoms of hepatic failure. Departure Latest Vital Signs Vital Signs 09/21/17 09/21/17 07:00 09:00 Pulse 105 Resp 17 B/P (MAP) 138/99 (112) Pulse Ox 93 O2 Delivery Room Air O2 Flow Rate 1.0 Weight (Pounds): 166 Weight (Ounces): 8.0 Result Diagram: 09/21/17 0508 09/21/17 0508 Condition: Improved Discharge: Home, Self Care Discharge Instructions Home Meds Discontinued Scripts Diazepam (VALIUM) 10 Mg Tablet, 1-2 TAB PO 2-3XD Y for alcohol withdrawal symptoms, #15 TAB Prov:KIMBERLY MARIN DO 09/14/17 Promethazine Hcl (PROMETHAZINE HCL) 25 Mg Tablet, 25 MG PO Q4H Y for NAUSEA/ VOMITING, #12 TAB Prov:KIMBERLY MARIN DO 09/14/17 Ondansetron (ZOFRAN ODT) 4 Mg Tab.rapdis, 4 MG PO Q6H Y for NAUSEA/VOMITING, # 10 TAB.LIZY Prov:KIMBERLY MARIN DO 09/14/17 Diet: Regular Activity: As Tolerated Venous Thromboembolism Antithrombotics Is Pt On Any Antithrombotics?: No Problem Qualifiers (1) Alcoholic hepatitis: Ascites presence: without ascites Qualified Codes: K70.10 - Alcoholic hepatitis without ascites MAGY RENE DO Sep 21, 2017 12:54
== END 2017-09-21 13:30 | disposition home or self-care (01) | DRG 378 ==
LOC: ER 23:38 → ICU 09-20 02:22
PROVIDERS: ADMIT Internal Medicine; ATTEND Internal Medicine
DX: K92.2 Gastrointestinal hemorrhage, unspecified (principal); F10.230 Alcohol dependence with withdrawal, uncomplicated; I48.91 Unspecified atrial fibrillation; D69.59 Other secondary thrombocytopenia; K70.10 Alcoholic hepatitis without ascites; D72.819 Decreased white blood cell count, unspecified; Y90.8 Blood alcohol level of 240 mg/100 ml or more
CPT/HCPCS: 36415; 80320; 82040; 82150; 82247; 82271; 82310; 82374; 82435; 82565; 82947; 83690; 83735; 83986; 84075; 84132; 84155; 84295; 84450; 84460; 84520; 85025; 85610; 85730; 86677; 86850; 86900; 86901; 86920; 93005; 96361; 96374; 96375; 97161; 97165; 99285; C9113; J2060; J2405; J2550; J3411; J3475; J3480; J3490; J7030; J7050

== ENCOUNTER 2017-10-08 06:36 | Emergency (ER) | payer SELFPAY ==
[2017-09-20 10:22] VITALS: Ht 182.9 cm; Wt 77.1 kg
[~2017-10-08] VITALS: Ht 182.9 cm; Wt 77.1 kg
[2017-10-08] MEDS ORDERED: NS(*) 0.9% 1000 ML BAG 1,000 ML IV ONE (06:51)
[2017-10-08] MEDS ORDERED: ASPIRIN 81 MG CHEW CHEW ONE (06:52)
--- NOTE | 2017-10-08 06:57 | EKG ---
FACILITY: [facility] - [place] PATIENT NAME: ONRMA CADE : [id number] MR: [id number] V: [id number] EXAM DATE: ORDERING PHYSICIAN: KATELYN VELAZQUEZ TECHNOLOGIST: LINA Cabello Reason : chest pain Blood Pressure : / mmHG Vent. Rate : 105 BPM Atrial Rate : 105 BPM P-R Int : 156 ms QRS Dur : 084 ms QT Int : 330 ms P-R-T Axes : 067 075 059 degrees QTc Int : 436 ms Sinus tachycardia Otherwise normal ECG No previous ECGs available Confirmed by MAGY RENE ([id number]) on 10/10/2017 7:42:45 AM Referred By: Confirmed By:MAGY RENE
[2017-10-08] MEDS ORDERED: THIAMINE HCL(*) 200 MG/2 ML IN 100 MG, FOLIC ACID(*) 50 MG/10 ML INJ 1 MG, MULTIVITAMIN... IV ONE (07:06)
[2017-10-08 07:10] LABS: PLATELET COUNT, AUTOMATED 343 K/uL (150-450)
--- NOTE | 2017-10-08 07:10 | ER Report ---
History and Physical Time Seen By MD: 07:07 Hx. of Stated Complaint: PT REPORTS HEART PALPITATIONS AND CHEST PAIN. HAS BEEN DRINKING TO EXCESS AGAIN TONIGHT PER HIM. HPI/ROS CHIEF COMPLAINT: ETOH abuse; chest pain HISTORY OF PRESENT ILLNESS: Patient is a 57-year-old male who presents for his 4th ED visit in approximately 30 days for alcohol abuse as well as complaint of chest pain and palpitations and "feeling like he is going to ". Patient has had multiple visits in September for alcohol abuse and hematemesis he is been admitted in the past but has refused endoscopy and refused detoxification. Patient states he feels like his chest is pounding and is having palpitations. He denies any shortness of breath. He reports nausea without vomiting he denies abdominal pain. Last drink was just prior to arrival to the emergency department. REVIEW OF SYSTEMS: Constitutional: No fever, no chills. Eyes: No discharge. ENT: No sore throat. Cardiovascular: Chest pain, palpitations Respiratory: No cough, no shortness of breath. Gastrointestinal: Nausea without vomiting or diarrhea no vomiting blood Genitourinary: No hematuria. Musculoskeletal: No back pain. Skin: No rashes. Neurological: No headache. Allergies: Coded Allergies: No Known Drug Allergies (Unverified , 10/08/17) Home Meds No Active Prescriptions or Reported Meds Past Medical/Surgical History Past medical history for alcohol abuse, history of hematemesis, refusing an endoscopy Hx Substance Use Disorder: No Hx Alcohol Use: Yes (16 oz of [place] a day. ) Constitutional Vital Sign - Last 24 Hours 10/08/17 10/08/17 10/08/17 10/08/17 06:41 06:42 06:46 06:51 Temp 97.8 Pulse 112 110 105 Resp 14 10 10 B/P (MAP) 154/94 (114) 154/94 Pulse Ox 92 90 89 O2 Delivery Room Air 10/08/17 10/08/17 10/08/17 10/08/17 06:56 07:00 07:01 07:06 Pulse 101 97 102 Resp 11 6 23 B/P (MAP) 148/104 (119) Pulse Ox 90 91 88 10/08/17 10/08/17 10/08/17 10/08/17 07:11 07:16 07:21 07:26 Pulse 102 117 104 96 Resp 18 10 15 15 Pulse Ox 91 91 90 91 10/08/17 10/08/17 10/08/17 10/08/17 07:30 07:31 07:36 07:46 Pulse 98 126 100 Resp 15 9 9 B/P (MAP) 149/101 (117) Pulse Ox 88 91 85 10/08/17 10/08/17 10/08/17 10/08/17 07:50 07:51 07:56 08:00 Pulse 94 89 Resp 10 7 B/P (MAP) 148/91 (110) Pulse Ox 91 95 O2 Flow Rate 1.0 10/08/17 10/08/17 08:01 08:11 Pulse 92 86 Resp 26 11 Pulse Ox 95 95 Intake and Output 10/08/17 10/08/17 10/09/17 15:01 23:01 07:01 Intake Total 1000 ml Balance 1000 ml Physical Exam General Appearance: The patient is alert, has no immediate need for airway protection and no signs of toxicity. Appears intoxicated Eyes: Pupils equal and round no pallor or injection. Mild conjunctival injection ENT, Mouth: Mucous membranes are moist. Respiratory: There are no retractions, lungs are clear to auscultation. Cardiovascular: Regular rate and rhythm. Gastrointestinal: Abdomen is soft and non tender, no masses, bowel sounds normal. Neurological: Intoxicated but oriented 3 Skin: Warm and dry, no rashes. Musculoskeletal: Neck is supple non tender. Extremities are nontender, nonswollen and have full range of motion. Medical Decision Making Data Points Result Diagram: 10/08/1762510/08/17 06 Laboratory Hematology Test 10/08/17 06:26 10/08/17 07:10 Red Blood Count 4.68 M/uL (4.00-5.60) Mean Corpuscular Volume 91.7 fL (80.0-96.0) Mean Corpuscular Hemoglobin 30.9 pg (26.0-33.0) Mean Corpuscular Hemoglobin Concent 33.7 g/dL (32.0-36.0) Red Cell Distribution Width 16.0 % (11.5-14.5) Mean Platelet Volume 6.9 fL (7.2-11.1) Neutrophils (%) (Auto) 71.1 % (39.4-72.5) Lymphocytes (%) (Auto) 22.5 % (17.6-49.6) Monocytes (%) (Auto) 4.6 % (4.1-12.4) Eosinophils (%) (Auto) 0.2 % (0.4-6.7) Basophils (%) (Auto) 1.6 % (0.3-1.4) Nucleated RBC Relative Count (auto) 0.1 /100WBC Neutrophils # (Auto) 5.9 K/uL (2.0-7.4) Lymphocytes # (Auto) 1.9 K/uL (1.3-3.6) Monocytes # (Auto) 0.4 K/uL (0.3-1.0) Eosinophils # (Auto) 0.0 K/uL (0.0-0.5) Basophils # (Auto) 0.1 K/uL (0.0-0.1) Nucleated RBC Absolute Count (auto) 0.01 K/uL Sodium Level 143 mmol/L (137-145) Potassium Level 3.6 mmol/L (3.5-5.0) Chloride Level 101 mmol/L (98-107) Carbon Dioxide Level 21 mmol/L (22-30) Blood Urea Nitrogen 5 mg/dl (9-21) Creatinine 0.80 mg/dl (0.66-1.25) Glomerular Filtration Rate Calc > 60.0 Random Glucose 153 mg/dl (75-110) Calcium Level 8.5 mg/dl (8.4-10.2) Magnesium Level 1.5 mg/dl (1.7-2.2) Total Bilirubin 0.5 mg/dl (0.2-1.3) Aspartate Amino Transf (AST/SGOT) 82 U/L (0-35) Alanine Aminotransferase (ALT/SGPT) 93 U/L (0-56) Alkaline Phosphatase 106 U/L (0-126) Troponin I 0.014 ng/ml Total Protein 7.8 gm/dl (6.3-8.2) Albumin 4.4 g/dl (3.5-5.0) Lipase 120 U/L (23-300) Salicylates Level < 10 mg/L Salicylate Last Dose Date unk Acetaminophen Level < 10 ug/ml Serum Alcohol 280 mg/dl Urine Color [place] Urine Clarity Clear Urine pH 6.0 pH (4.8-9.5) Urine Specific [place] 1.015 Urine Protein 30 mg/dL (NEGATIVE) Urine Glucose (UA) Negative mg/dL (NEGATIVE) Urine Ketones Trace mg/dL (NEGATIVE) Urine Blood Small (NEGATIVE) Urine Nitrite Negative (NEGATIVE) Urine Bilirubin Negative (NEGATIVE) Urine Urobilinogen Negative mg/dL (0.2-1.9) Urine Leukocyte Esterase Negative (NEGATIVE) Urine RBC 1 /HPF (0-2/HPF) Urine WBC 1 /HPF (0-5/HPF) Urine Squamous Epithelial Cells None /LPF (</=FEW) Urine Bacteria Negative /HPF (NONE-FEW) Urine Hyaline Casts Few /LPF (NONE-FEW) Urine Mucus Few /HPF (NONE-FEW) Urine Opiates Screen Negative Urine Barbiturates Screen Negative Ur Tricyclic Antidepressants Screen Negative Urine Phencyclidine Screen Negative Urine Amphetamines Screen Negative Urine Benzodiazepines Screen Negative Urine Cocaine Screen Negative Urine Cannabinoids Screen Negative Chemistry Test 10/08/17 06:26 10/08/17 07:10 White Blood Count 8.3 k/uL (4.5-11.0) Red Blood Count 4.68 M/uL (4.00-5.60) Hemoglobin 14.5 g/dL (14.0-18.0) Hematocrit 42.9 % (42.0-52.0) Mean Corpuscular Volume 91.7 fL (80.0-96.0) Mean Corpuscular Hemoglobin 30.9 pg (26.0-33.0) Mean Corpuscular Hemoglobin Concent 33.7 g/dL (32.0-36.0) Red Cell Distribution Width 16.0 % (11.5-14.5) Platelet Count 343 K/uL (150-450) Mean Platelet Volume 6.9 fL (7.2-11.1) Neutrophils (%) (Auto) 71.1 % (39.4-72.5) Lymphocytes (%) (Auto) 22.5 % (17.6-49.6) Monocytes (%) (Auto) 4.6 % (4.1-12.4) Eosinophils (%) (Auto) 0.2 % (0.4-6.7) Basophils (%) (Auto) 1.6 % (0.3-1.4) Nucleated RBC Relative Count (auto) 0.1 /100WBC Neutrophils # (Auto) 5.9 K/uL (2.0-7.4) Lymphocytes # (Auto) 1.9 K/uL (1.3-3.6) Monocytes # (Auto) 0.4 K/uL (0.3-1.0) Eosinophils # (Auto) 0.0 K/uL (0.0-0.5) Basophils # (Auto) 0.1 K/uL (0.0-0.1) Nucleated RBC Absolute Count (auto) 0.01 K/uL Glomerular Filtration Rate Calc > 60.0 Calcium Level 8.5 mg/dl (8.4-10.2) Magnesium Level 1.5 mg/dl (1.7-2.2) Total Bilirubin 0.5 mg/dl (0.2-1.3) Aspartate Amino Transf (AST/SGOT) 82 U/L (0-35) Alanine Aminotransferase (ALT/SGPT) 93 U/L (0-56) Alkaline Phosphatase 106 U/L (0-126) Troponin I 0.014 ng/ml Total Protein 7.8 gm/dl (6.3-8.2) Albumin 4.4 g/dl (3.5-5.0) Lipase 120 U/L (23-300) Salicylates Level < 10 mg/L Salicylate Last Dose Date unk Acetaminophen Level < 10 ug/ml Serum Alcohol 280 mg/dl Urine Color [place] Urine Clarity Clear Urine pH 6.0 pH (4.8-9.5) Urine Specific [place] 1.015 Urine Protein 30 mg/dL (NEGATIVE) Urine Glucose (UA) Negative mg/dL (NEGATIVE) Urine Ketones Trace mg/dL (NEGATIVE) Urine Blood Small (NEGATIVE) Urine Nitrite Negative (NEGATIVE) Urine Bilirubin Negative (NEGATIVE) Urine Urobilinogen Negative mg/dL (0.2-1.9) Urine Leukocyte Esterase Negative (NEGATIVE) Urine RBC 1 /HPF (0-2/HPF) Urine WBC 1 /HPF (0-5/HPF) Urine Squamous Epithelial Cells None /LPF (</=FEW) Urine Bacteria Negative /HPF (NONE-FEW) Urine Hyaline Casts Few /LPF (NONE-FEW) Urine Mucus Few /HPF (NONE-FEW) Urine Opiates Screen Negative Urine Barbiturates Screen Negative Ur Tricyclic Antidepressants Screen Negative Urine Phencyclidine Screen Negative Urine Amphetamines Screen Negative Urine Benzodiazepines Screen Negative Urine Cocaine Screen Negative Urine Cannabinoids Screen Negative Toxicology Test 10/08/17 06:26 10/08/17 07:10 Salicylates Level < 10 mg/L Salicylate Last Dose Date unk Acetaminophen Level < 10 ug/ml Serum Alcohol 280 mg/dl Urine Opiates Screen Negative Urine Barbiturates Screen Negative Ur Tricyclic Antidepressants Screen Negative Urine Phencyclidine Screen Negative Urine Amphetamines Screen Negative Urine Benzodiazepines Screen Negative Urine Cocaine Screen Negative Urine Cannabinoids Screen Negative Urinalysis Test 10/08/17 07:10 Urine Color [place] Urine Clarity Clear Urine pH 6.0 pH (4.8-9.5) Urine Specific [place] 1.015 Urine Protein 30 mg/dL (NEGATIVE) Urine Glucose (UA) Negative mg/dL (NEGATIVE) Urine Ketones Trace mg/dL (NEGATIVE) Urine Blood Small (NEGATIVE) Urine Nitrite Negative (NEGATIVE) Urine Bilirubin Negative (NEGATIVE) Urine Urobilinogen Negative mg/dL (0.2-1.9) Urine Leukocyte Esterase Negative (NEGATIVE) Urine RBC 1 /HPF (0-2/HPF) Urine WBC 1 /HPF (0-5/HPF) Urine Squamous Epithelial Cells None /LPF (</=FEW) Urine Bacteria Negative /HPF (NONE-FEW) Urine Hyaline Casts Few /LPF (NONE-FEW) Urine Mucus Few /HPF (NONE-FEW) EKG/Imaging EKG Interpretation EKG shows a borderline sinus tachycardia with ventricular rate of [address] segment or T-wave abnormalities are noted. Monitor Interpretation: Normal Sinus Rhythm ED Course/Re-evaluation Clinical Indication for ER IV: IV Access ED Course 10/08/2017 7:17:09 am this appears to be the 4th ED visit in the last 30 days for similar complaints of alcohol intoxication. At this time the patient denies any history of vomiting blood although his prior presentations he's had hematemesis but has always refused endoscopy and still refuses to have the procedure done. He was counseled on his alcohol abuse and likely alcohol dependence however at this time he is refusing any detox treatment stating that he is "just a binge drinker". I explained to him that his alcohol is affecting his lifestyle and health and that I really would recommend alcohol detox and then entering some type of a 12-step program to obtain continued sobriety. Plan at this time will be to evaluate her medically for causes of chest pain which includes a cardiac pulmonary GI related complaints. Disposition pending workup. Re-evaluation 10/08/2017 8:50:49 am workup at this time is unremarkable for concerns patient is feeling better. I did offer patient again Behavioral Health services for detox patient; he is refusing at this time and wishes to leave Decision to Disposition Date: Oct 08, 2017 Decision to Disposition Time: 08:51 Depart Departure Latest Vital Signs Vital Signs Date Time Temp Pulse Resp B/P (MAP) Pulse Ox O2 Delivery O2 Flow Rate FiO2 10/08/17 08:11 86 11 95 10/08/17 08:00 148/91 (110) 10/08/17 07:50 1.0 10/08/17 06:42 97.8 Room Air Impression: Primary Impression: Palpitations Additional Impression: Alcohol intoxication Condition: Improved Referrals: LEIGH VELEZ DO Call to schedule follow-up appointment for routine health maintenance. New Scripts No Active Prescriptions or Reported Meds Patient Instructions: Alcohol Intoxication (DC), Palpitations (ED) Problem Qualifiers Additional Impression: Alcohol intoxication Complication of substance-induced condition: with unspecified complication Qualified Codes: F10.929 - Alcohol use, unspecified with intoxication, unspecified NICOLE LEW MD Oct 08, 2017 07:09
[2017-10-08] MEDS ORDERED: ONDANSETRON 4 MG/2 ML VIAL IVP ONE (07:15)
[2017-10-08] MEDS ORDERED: LORazepam 2 MG/ML VIAL IVP ONE (07:15)
--- NOTE | 2017-10-08 07:52 | RADIOLOGY IMAGING REPORT ---
FACILITY: [facility] - [place] PATIENT NAME: Jim Hidalgo : 1960 MR: [id number] V: [id number] EXAM DATE: ORDERING PHYSICIAN: NICOLE LEW TECHNOLOGIST: Location: [facility] Patient: Jim Hidalgo : 1960 Visit/Account:[id number] Date of Sevice: 10/08/2017 CHEST SINGLE AP 10/08/2017 07:16 hours. HISTORY: Chest pain. Palpitations. Spitting up. COMPARISON: None. TECHNIQUE: Portable AP view of the chest. FINDINGS: Tubes/lines/hardware: There are external chest leads. Pulmonary: Lungs are clear. There is no pneumothorax or pleural effusion. Cardiomediastinal: Cardiac and mediastinal silhouettes are within normal limits. Bones/soft tissues: No acute osseous abnormality. The visible abdomen is normal. IMPRESSION: 1. No acute cardiopulmonary process. Report Dictated By: Priscila Chacon at 10/08/2017 7:48 AM Report E-Signed By: Priscila Chacon at 10/08/2017 7:48 AM WSN:[id number]
[2017-10-08 08:53] VITALS: BP 156/118
== END 2017-10-08 08:57 | disposition home or self-care (01) ==
LOC: ER 06:48
DX: R00.2 Palpitations (principal); F10.929 Alcohol use, unspecified with intoxication, unspecified; R00.0 Tachycardia, unspecified
CPT/HCPCS: 36415; 71045; 80305; 80320; 80329; 81001; 83690; 83735; 84443; 84484; 85025; 86850; 86900; 86901; 93005; 96361; 96365; 96375; 99284; J2060; J2405; J3411; J3475; J7030; 82040; 82247; 82310; 82374; 82435; 82565; 82947; 84075; 84132; 84155; 84295; 84450; 84460; 84520

== ENCOUNTER 2017-10-10 06:24 | Emergency (ER) | payer SELFPAY ==
[2017-09-20 10:22] VITALS: Wt 77.1 kg
--- NOTE | 2017-10-10 06:41 | ER Report ---
History and Physical Time Seen By MD: 06:41 Hx. of Stated Complaint: Patient reporting that he has been drinking and is dehydrated. Patient is asking for ativan, banana bag and zofran. Patient does not want to detox. (MARYBETH AMIN MD) HPI/ROS CHIEF COMPLAINT: vomiting, feels dehydrated HISTORY OF PRESENT ILLNESS: This is a 57 year old male. He says that he is a binge drinker and has been on another binge. He does not want to detox. He is asking for some fluids, ativan and zofran. He states that he has a job in [place] that he needs to get to and has been delayed. His last drink was at about 2000 last night. He has no other complaints. (MARYBETH AMIN MD) Allergies: Coded Allergies: No Known Drug Allergies (Unverified , 10/08/17) Home Meds No Active Prescriptions or Reported Meds Reviewed Nurses Notes: Yes (MARYBETH AMIN MD) Hx Substance Use Disorder: No Hx Alcohol Use: Yes (16 oz of [place] a day. ) (MARYBETH AMIN MD) Constitutional Vital Sign - Last 24 Hours 10/10/17 10/10/17 10/10/17 10/10/17 06:29 06:31 06:34 06:39 Temp 98.0 Pulse 110 105 Resp 22 18 B/P (MAP) 148/102 (117) 142/93 (109) 142/93 Pulse Ox 91 88 O2 Delivery Room Air 10/10/17 10/10/17 10/10/17 10/10/17 06:40 06:50 07:00 07:09 Pulse 99 Resp 17 B/P (MAP) 162/102 (122) 157/102 (120) 167/98 (121) Pulse Ox 87 10/10/17 10/10/17 10/10/17 10/10/17 07:10 07:15 07:20 07:25 Pulse 94 95 97 Resp 27 15 20 B/P (MAP) 175/90 (118) 165/94 (117) Pulse Ox 87 87 10/10/17 10/10/17 10/10/17 10/10/17 07:30 07:35 07:40 07:41 Pulse 123 101 99 Resp 16 21 14 B/P (MAP) 170/98 (122) 163/101 (121) Pulse Ox 89 87 90 Intake and Output 10/10/17 10/10/17 10/11/17 15:00 23:00 07:00 Intake Total 1000 ml Balance 1000 ml (NICOLE LEW MD) Physical Exam General Appearance: The patient is alert. having ongoing heaving and vomiting. Eyes: Pupils are equal, round. No pallor, injection or icterus. ENT: Mucous membranes are moist. Respiratory: Lungs are clear to auscultation. Cardiovascular: Regular rate and rhythm. No murmurs, gallops or rubs. Gastrointestinal: Abdomen is soft. Nondistended. Normal active bowel sounds. Neurological: Alert and oriented x3. Skin: Warm and dry. DIFFERENTIAL DIAGNOSIS: After history and physical exam, differential diagnosis was considered for nausea and vomiting after alcohol binge. Agreed to give IV fluids and Zofran, but no Ativan. (MARYBETH AMIN MD) Medical Decision Making ED Course/Re-evaluation Clinical Indication for ER IV: Hydration, IV Access Decision to Disposition Date: Oct 10, 2017 Decision to Disposition Time: 06:49 (MARYBETH AMIN MD) ED Course Patient received 1 L of normal saline, total of 8 mg of IV Zofran. The patient improved and was discharged home Decision to Disposition Date: Oct 10, 2017 Decision to Disposition Time: 07:50 Turned Over 10/10/2017 7:07:35 am Exceped care of patient at this time. Patient seen by myself 1-2 days ago for similar complaint. He has no interest in going through detox at this time. Plan will be IV fluids Zofran and then disposition home. (NICOLE LEW MD) Depart Departure Latest Vital Signs Vital Signs Date Time Temp Pulse Resp B/P (MAP) Pulse Ox O2 Delivery O2 Flow Rate FiO2 10/10/17 07:41 163/101 (121) 10/10/17 07:40 99 14 90 10/10/17 06:34 98.0 Room Air (NICOLE LEW MD) Impression: Primary Impression: Alcohol intoxication Condition: Improved Disposition: HOME OR SELF-CARE New Scripts No Active Prescriptions or Reported Meds Patient Instructions: Alcohol Dependence (ED) Problem Qualifiers Primary Impression: Alcohol intoxication Complication of substance-induced condition: uncomplicated Qualified Codes: F10.920 - Alcohol use, unspecified with intoxication, uncomplicated MARYBETH AMIN MD Oct 10, 2017 06:41 NICOLE LEW MD Oct 10, 2017 07:08
[2017-10-10] MEDS ORDERED: ONDANSETRON 4 MG/2 ML VIAL IVP ONE ×2 (06:45→07:30)
[2017-10-10] MEDS ORDERED: THIAMINE HCL(*) 200 MG/2 ML IN 100 MG, FOLIC ACID(*) 50 MG/10 ML INJ 1 MG, MULTIVITAMIN... IV ONE (06:45)
[2017-10-10 07:41] VITALS: BP 163/101
[2017-10-11] MEDS ORDERED: ONDA4TAB PO (22:10)
== END 2017-10-10 07:42 | disposition home or self-care (01) ==
LOC: ER 06:38
DX: F10.920 Alcohol use, unspecified with intoxication, uncomplicated (principal)
CPT/HCPCS: 96365; 96375; 99284; J2405; J3411; J7030

== ENCOUNTER 2017-10-11 19:15 | Emergency (ER) | payer SELFPAY ==
[2017-09-20 10:22] VITALS: Ht 182.9 cm; Wt 77.1 kg
[~2017-10-11] VITALS: Ht 182.9 cm; Wt 77.1 kg
[2017-10-11 20:02] LABS: PLATELET COUNT, AUTOMATED 164 K/uL (150-450)
[2017-10-11] MEDS ORDERED: KCL (*) 20 MEQ/100 ML PREMIX 100 ML IV ONE (20:30)
[2017-10-11] MEDS ORDERED: ONDANSETRON 4 MG/2 ML VIAL IVP ONE ×2 (20:30→22:25)
--- NOTE | 2017-10-11 20:30 | RADIOLOGY IMAGING REPORT ---
FACILITY: [facility] PATIENT NAME: Jim Hidalgo : 1960 MR: [id number] V: [id number] EXAM DATE: ORDERING PHYSICIAN: JOSUÉ GONSALEZ TECHNOLOGIST: Location: [facility] - [place] Patient: Jim Hidalgo : 1960 Visit/Account:[id number] Date of Sevice: 10/11/2017 EXAMINATION: Frontal chest with 2 views of the abdomen HISTORY: Vomiting. COMPARISON: Chest radiograph 10/08/2017. FINDINGS: The lungs are clear. No focal consolidation or pleural fluid. Normal heart size and pulmonary vascula rity, with normal cardiomediastinal contours. Nonobstructive bowel gas pattern, with a small amount of air scattered throughout normal-caliber loop s of small bowel and colon. No radiographic evidence of obstruction. The stomach is significantly dis tended with a fluid level. No free intraperitoneal air. No evidence of organomegaly or abnormal calcification. No acute osseous findings. Scattered degenerat vinh changes throughout the spine and at the partially visualized right hip IMPRESSION: 1. No evidence of acute cardiopulmonary disease. 2. Nonobstructive bowel gas pattern, with a small volume of colonic stool. 3. The stomach is distended with a fluid level. Report Dictated By: Nilay Kaufman MD at 10/11/2017 8:24 PM Report E-Signed By: Nilay Kaufman MD at 10/11/2017 8:26 PM WSN:[id number]
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
[2017-10-11] MEDS ORDERED: DILTIAZEM 5 MG/ML 5ML IVPUSH IVP ONE (21:35)
--- NOTE | 2017-10-11 21:36 | EKG ---
FACILITY: [facility] PATIENT NAME: NORMA CADE : [id number] MR: [id number] V: [id number] EXAM DATE: ORDERING PHYSICIAN: JOSUÉ GONSALEZ TECHNOLOGIST: Test Reason : Blood Pressure : / mmHG Vent. Rate : 167 BPM Atrial Rate : 192 BPM P-R Int : 000 ms QRS Dur : 070 ms QT Int : 286 ms P-R-T Axes : 000 076 -22 degrees QTc Int : 477 ms Atrial fibrillation with rapid ventricular response Much baseline artifact in limb leads making interpretation difficult Confirmed by DOMINGO OSBORNE ([id number]) on 10/12/2017 6:28:01 AM Referred By: Confirmed By:DOMINGO OSBORNE
[2017-10-11] MEDS ORDERED: ONDA4TAB PO (22:10)
[2017-10-11] MEDS ORDERED: ONDANSETRON 4 MG ODT TH SL ONE (22:25)
[2017-10-11 22:42] VITALS: BP 149/102
--- NOTE | 2017-10-11 22:46 | EKG ---
FACILITY: [facility] PATIENT NAME: NORMA CADE : [id number] MR: [id number] V: [id number] EXAM DATE: ORDERING PHYSICIAN: JOSUÉ GONSALEZ TECHNOLOGIST: Eamon Cabelol Reason : Blood Pressure : / mmHG Vent. Rate : 099 BPM Atrial Rate : 099 BPM P-R Int : 138 ms QRS Dur : 072 ms QT Int : 366 ms P-R-T Axes : 117 071 060 degrees QTc Int : 469 ms Normal sinus rhythm Much baseline artifact, but no obvious ST-T abnormalities When compared with ECG of 11-OCT-2017 21:24, Sinus rhythm has replaced Atrial fibrillation Vent. rate has decreased BY 68 BPM Confirmed by DOMINGO OSBORNE ([id number]) on 10/12/2017 6:29:17 AM Referred By: Confirmed By:DOMINGO OSBORNE
== END 2017-10-11 22:56 | disposition home or self-care (01) ==
LOC: ER 19:28
DX: F10.230 Alcohol dependence with withdrawal, uncomplicated (principal); R11.2 Nausea with vomiting, unspecified; I48.91 Unspecified atrial fibrillation
CPT/HCPCS: 74022; 80305; 80320; 80329; 81001; 82150; 83690; 83735; 84443; 84484; 85025; 93005; 96365; 96366; 96375; 96376; 99284; J2405; J3480; J3490; S0119; 82040; 82247; 82310; 82374; 82435; 82565; 82947; 84075; 84132; 84155; 84295; 84450; 84460; 84520